=== PATIENT | female | born 1940 | race Caucasian/White ===

== ENCOUNTER → 2016-04-05 | Outpatient (CLI) | payer OTHER ==
[~2016-04-05] VITALS: Ht 152.4 cm; Wt 58.5 kg
[~2016-04-05] MED LIST: ALPHA LIPOIC A200 M1 PO; AMLODIPINE BESYL5 MG PO; BYSTOLIC5 MG PO; CRANBERRY450 M1 PO; HYDROCHLOROTHIA25 MG PO; LIPITOR10 MG PO; MAGNESIUM 300300 MG PO; RAMIPRIL5 MG PO; SENOKOT,SENN1 TABLET PO; SLEEP AID25 M2 PO; ST. JOSEPH ASPI81 MG PO; VITAMIN D1000 INTUN PO
[2016-04-05 11:58] LABS: ANION GAP 14 MEQ/L (2-14); CHLORIDE 100 MEQ/L (99-109); POTASSIUM 5.2 MEQ/L (3.7-5.4); SAMPLE HEMOLYSIS CHECK 2; SAMPLE ICTERIC CHECK 0; SAMPLE LIPEMIA CHECK 0; SODIUM 138 MEQ/L (136-147)
[2016-04-05 12:04] LABS: GFR ESTIMATE (CALCULATED) > 59 mL/min/; GLUCOSE 85 mg/dL (70-99); UREA NITROGEN (BUN) 31 mg/dL (9-23)
== END | disposition home or self-care (01) ==
LOC: AMB 10:02
PROVIDERS: Anesthesiology
PROC: 0DB48ZX Excision of Esophagogastric Junction, Via Natural or Artificial Opening Endoscopic, Diagnostic (ICD-10-PCS; principal; 2016-04-05)
DX: K22.70 Barrett's esophagus without dysplasia (principal); K21.9 Gastro-esophageal reflux disease without esophagitis; K20.9 Esophagitis, unspecified; I11.9 Hypertensive heart disease without heart failure; E78.5 Hyperlipidemia, unspecified; I67.82 Cerebral ischemia
CPT/HCPCS: 80048; 88305; 93005; B4087

== ENCOUNTER → 2017-01-03 | Outpatient (CLI) | payer OTHER | END | disposition home or self-care (01) | LOC: AMB 08:25 | PROC: 0DB48ZX Excision of Esophagogastric Junction, Via Natural or Artificial Opening Endoscopic, Diagnostic (ICD-10-PCS; principal; 2017-01-03) | DX: K22.70 Barrett's esophagus without dysplasia (principal); I12.9 Hypertensive chronic kidney disease with stage 1 through stage 4 chronic kidney disease, or unspecified chronic kidney disease; N18.3 Chronic kidney disease, stage 3 (moderate); E78.2 Mixed hyperlipidemia; R32 Unspecified urinary incontinence; E55.9 Vitamin D deficiency, unspecified; Z87.440 Personal history of urinary (tract) infections; Z86.19 Personal history of other infectious and parasitic diseases; Z98.1 Arthrodesis status; Z82.49 Family history of ischemic heart disease and other diseases of the circulatory system; Z82.61 Family history of arthritis; Z84.89 Family history of other specified conditions; Z83.518 Family history of other specified eye disorder; Z88.1 Allergy status to other antibiotic agents; Z88.8 Allergy status to other drugs, medicaments and biological substances | CPT/HCPCS: 88305 ==